=== PATIENT | female | born 1985 | race African-American/Black ===

== ENCOUNTER 2017-02-11 19:28 | Emergency (ER) | payer MEDICAID, OTHER ==
[~2017-02-11] VITALS: Ht 162.6 cm; Wt 81.6 kg
[~2017-02-11 19:28] MED LIST: DOXYCYCLINE MO100 MG ORAL; METRONIDAZOLE500 MG ORAL; NAPROXEN500 M2 ORAL; NKM
--- NOTE | 2017-02-11 19:43 | Emergency Room Report ---
History of Present Illness General Chief Complaint: To Be Triaged Source: Patient, Medical Record Present Illness HPI 31YOF walk-in [employer] patient with dizziness and near syncope while working. Associated with nausea. States is 12-weeks . On vitamins. , has 13 year old son. No previous ectopic, , miscarriage. Denies abd pain, vaginal bleeding, nausea/vomiting, SOB. no other med problems. Denies ETOH, drinking, smoking, drug use - however EMR indicates previous polysubstance abuse. Allergies: Coded Allergies: PROCHLORPERAZINE (Unverified Allergy, Intermediate, 01/17/15) ANXIETY METOCLOPRAMIDE (Unverified Allergy, Unknown, 01/17/15) ANXIETY Patient History Past Medical History: none Past Surgical History: none Pertinent Family History: none Social History: Denies: alcohol use, drug use, smoking Now: Yes Immunizations: UTD Reviewed Nursing Documentation: PMH: Agreed, PSxH: Agreed Nursing Documentation-PMH Hx Cardiac Problems: No Hx Hypertension: No Hx Pacemaker: No Hx Asthma: Yes Hx COPD: No Hx Diabetes: No Hx Cancer: No Hx Gastrointestinal Problems: No Hx Dialysis: No Hx Neurological Problems: No Hx Cerebrovascular Accident: No Hx Seizures: No Review of Systems All Other Systems: negative except mentioned in HPI Physical Exam Sp02 EP Interpretation: reviewed, normal General Appearance: normal inspection, well appearing, no apparent distress, alert, GCS 15, non-toxic Head: normocephalic, atraumatic Eyes: bilateral eye EOMI, bilateral eye PERRL ENT: normal ENT inspection, hearing grossly normal, normal voice Neck: normal inspection, full range of motion, supple, no bony tend Respiratory: normal inspection, lungs clear, normal breath sounds, no respiratory distress, no retraction, no wheezing Cardiovascular #1: regular rate, rhythm, no edema Gastrointestinal: normal inspection, normal bowel sounds, non tender, soft, no guarding, no hernia, other - gravid uterus Genitourinary: no CVA tenderness Musculoskeletal: normal inspection, back normal, normal range of motion, Conrado' s Sign negative Neurologic: normal inspection, alert, oriented x3, responsive, design drafter III-XII nml as tested, motor strength/tone normal, speech normal Psychiatric: normal inspection, judgement/insight normal, mood/affect normal Skin: normal inspection, normal color, no rash Medical Decision Making Diagnostic Impression: Primary Impression: Near syncope Additional Impressions: Nausea and vomiting during Hypoglycemia ER Course 31YOF with near syncope and nausea. VS notable for mild hypotension ( likely baseline in ) Labs: H&H stable. No leuks. No UTI. Hypoglycemic. UTox negative Urine preg + UA negative for infection ECG is NSR. No ischemia. No right heart strain. No S1Q3T3 pattern or sinus tach. CXR does not show PTX, cardiomegaly or PNA. Multiple RNs tried to obtain IV access without success. patient would not allow me to place EJ. I do not think she warrants a central line just to obtain IV access and the risk of placing a central line far outweighs need to hydrate patient at this time. She is tolerating PO. Near syncope could be result of hypotension of and hypoglycemia. Was given juice in ED. Not on diabetic meds or other meds that could lower glucose. Low suspicion for PE given stable vitals, not hypoxic, no unilateral leg swelling, no personal or family history of DVT, PE, and ECG is NOT sinus tach nor does it show S1Q3T3. Nausea improved with zofran in ED. Advised eating multiple small meals to improve nausea in and use zofran sparingly. Advised close OB followup in 1-2 days and return to ER for worsening symptoms, syncope, chest pain, SOB or other concerns. EKG Diagnostic Results Rate: normal Rhythm: NSR ST Segments: no acute changes ASA given to the pt in ED: No Chest X-Ray Diagnostic Results EP Interpretation: Yes Findings: no consolidation, no effusion, no pneumothorax, no acute cardiopulmonary disease Number of Views: 1 Status: improved Disposition: HOME, SELF-CARE Scripts Ondansetron Odt* (ZOFRAN ODT*) 4 Mg Tab.rapdis 4 MG ORAL BID Y for Nausea & Vomiting for 7 Days, #14 TAB 0 Refills Prov: JOHNATHAN JC M.D. 02/11/17 JOHNATHAN JC M.D. February 11, 2017 19:43
[2017-02-11 19:45] VITALS: BP 91/48
[2017-02-11 20:14] LABS: APPEARANCE,URINE CLEAR; KETONES,URINE 1+ (NEGATIVE); LEUKOCYTE ESTERASE ,URINE NEGATIVE (NEGATIVE); NITRITE,URINE NEGATIVE (NEGATIVE); PH,URINE 5 (4.5-8.0); PROTEIN,URINE NEGATIVE (NEGATIVE); UROBILINOGEN,URINE 1 MG/DL (0.0-1.0)
[2017-02-11 20:26] LABS: RBC,URINE 0-2 /HPF (0 - 2); SQUAMOUS EPITHELIAL CELL,UR MODERATE /LPF (NONE/OCC); WBC,URINE 0-2 /HPF (0 - 2)
[2017-02-11 20:33] LABS: EOSINOPHILS % (AUTO) 1.3 % (0.0-3.0); LYMPHOCYTES % (AUTO) 25.4 % (20.0-45.0); MEAN CORPUSCULAR HEMOGLOBIN 32.1 PG (27.0-31.0); MEAN CORPUSCULAR HGB CONC 34.6 G/DL (32.0-36.0); MEAN CORPUSCULAR VOLUME 93 FL (80-99); MEAN PLATELET VOLUME 9.2 FL (6.5-10.1); MONOCYTES % (AUTO) 4.9 % (1.0-10.0); NEUTROPHILS % (AUTO) 67.4 % (45.0-75.0); PLATELET COUNT 159 K/UL (150-450); RED BLOOD COUNT 3.97 M/UL (4.20-5.40); RED CELL DISTRIBUTION WIDTH 12.3 % (11.6-14.8); WHITE BLOOD COUNT 8.5 K/UL (4.8-10.8)
[2017-02-11 20:58] LABS: ALANINE AMINOTRANSFERASE 20 U/L (3-33); ANION GAP 17 (5-15); ASPARTATE AMINO TRANSFERASE 19 U/L (5-40); CARBON DIOXIDE 22 mEQ/L (20-30); CHLORIDE 96 mEQ/L (98-107); CREATININE 0.8 mg/dL (0.5-0.9); GLOMERULAR FILTRATION RATE > 60 mL/min (>60); HEMOLYSIS 3; POTASSIUM 3.6 mEQ/L (3.4-4.9); SODIUM 135 mEQ/L (135-145); TOTAL PROTEIN 7.4 g/dL (6.6-8.7)
[2017-02-11 21:08] LABS: CKMB < 1.5 ng/mL (< 3.8)
[2017-02-11] MEDS ORDERED: ZOFRAN ODT4 MG ORAL (21:14)
[2017-02-11 21:30] VITALS: BP 95/51
--- NOTE | 2017-02-12 10:20 | Diagnostic Imaging Report ---
Indication: Shortness of breath Technique: XRAY CHEST 1 V Comparison: 06/29/16 Findings: The cardiomediastinal silhouette is within normal limits. There is no focal consolidation, pneumothorax or pleural effusion. Osseous structures demonstrate no acute abnormality. Impression: No acute cardiopulmonary disease.
== END 2017-02-11 21:30 | disposition home or self-care (01) ==
LOC: EMR 19:45
DX: R55 Syncope and collapse (principal); O26.91 Pregnancy related conditions, unspecified, first trimester; Z3A.12 12 weeks gestation of pregnancy; E16.2 Hypoglycemia, unspecified; Z88.8 Allergy status to other drugs, medicaments and biological substances; J45.909 Unspecified asthma, uncomplicated
CPT/HCPCS: 36415; 71010; 80053; 80300; 81003; 81025; 82550; 82553; 82962; 85025; 93005; 99283